=== PATIENT | male | born 2000 | race Two or more races ===

== ENCOUNTER 2024-03-02 13:54 | Emergency (ER) | payer OTHER ==
[~2024-03-02] VITALS: Ht 175.3 cm; Wt 104.3 kg
[2024-03-02] MEDS ORDERED: ACETAMINOPHEN 500 MG GEL..CAP PO ONE (15:44)
== END 2024-03-02 18:47 | disposition home or self-care (01) ==
LOC: ER 13:57
DX: J10.1 Influenza due to other identified influenza virus with other respiratory manifestations (principal); Z20.822 Contact with and (suspected) exposure to COVID-19

== ENCOUNTER 2024-04-26 13:54 | Emergency (ER) | payer OTHER ==
[~2024-04-26] VITALS: Ht 177.8 cm; Wt 111.1 kg
[2024-04-26] MEDS ORDERED: CETIRIZINE HCL 5 MG/5 ML ML PO ONE (16:15)
[2024-04-26] MEDS ORDERED: GUAIFENESIN 200 MG/10 ML BLIST.PACK PO ONE (16:15)
[2024-04-26 16:47] LABS: HEMATOCRIT 41.4 % (39.0-48.0); MEAN CELL VOLUME 74.1 fL (80.0-100.00); MEAN CORPUSCULAR HGB CONC 33.8 g/dl (32.0-36.0); PLATELET COUNT 250 K/uL (150-450); RED BLOOD COUNT 5.59 M/uL (4.00-6.00)
[2024-04-26] MEDS ORDERED: ZYRTEC10 MG PO (18:35)
[2024-04-26] MEDS ORDERED: AMOX-CLAV 875-1 EACH PO (18:35)
[2024-04-26] MEDS ORDERED: SINGULAIR10 MG PO (18:35)
[2024-04-26] MEDS ORDERED: CEFTRIAXONE SODIUM 1,000 MG VIAL IM ONE (18:45)
== END 2024-04-26 19:25 ==
LOC: ER 13:57
PROVIDERS: Preventive Medicine Public Health & General Preventive Medicine
DX: J01.80 Other acute sinusitis (principal); J00 Acute nasopharyngitis [common cold]; J06.9 Acute upper respiratory infection, unspecified; Z20.822 Contact with and (suspected) exposure to COVID-19
CPT/HCPCS: 36415; 70220; 71046; 96372; 99283; J0696

== ENCOUNTER 2024-10-30 14:07 | Emergency (ER) | payer OTHER ==
[~2024-10-30] VITALS: Ht 172.7 cm; Wt 116.1 kg
[~2024-10-30 14:07] MED LIST: AMOX-CLAV 875-1 EACH PO; SINGULAIR10 MG PO; ZYRTEC10 MG PO
[2024-10-30 14:09] VITALS: BP 113/70; O2SAT 98
[2024-10-30] MEDS ORDERED: KETOROLAC TROMETHAMINE 30 MG VIAL IM ONE (14:45)
[2024-10-30] MEDS ORDERED: KETOROLAC TROMETHAMINE 30 MG VIAL ONE (15:55)
[2024-10-30] MEDS ORDERED: DICLOFENAC SODI50 MG PO (16:09)
== END 2024-10-30 17:50 ==
LOC: ER 14:07
DX: G89.11 Acute pain due to trauma (principal); M79.672 Pain in left foot; M25.472 Effusion, left ankle